=== PATIENT | female | born 1995 | race Two or more races ===

== ENCOUNTER → 2017-11-18 16:32 | Outpatient (CLI) | payer OTHER, SELFPAY ==
[2017-11-21 15:04] LABS: HPV Reflexed? NOT INDICATED
== END ==
PROVIDERS: Visit Provider Nurse Practitioner Women's Health
DX: Z12.4 Encounter for screening for malignant neoplasm of cervix (principal)
CPT/HCPCS: 88175; G0145

== ENCOUNTER → 2018-11-25 16:10 | Outpatient (CLI) | payer OTHER, SELFPAY ==
[2018-11-25 14:33] VITALS: BMI 19.7
[2018-11-25 19:01] LABS: Chlamydia Trachomatis by PCR Negative (Negative); Neisserai gonorrhoeae by PCR Negative (Negative); Probe Check PASS; Sample Adequacy Control PASS; Specimen Processing Control PASS
== END ==
PROVIDERS: Referring Provider Nurse Practitioner Women's Health; Visit Provider Nurse Practitioner Women's Health
DX: Z11.3 Encounter for screening for infections with a predominantly sexual mode of transmission (principal)
CPT/HCPCS: 87491; 87591

== ENCOUNTER 2020-12-24 00:27 | Outpatient (RCR) | payer OTHER, SELFPAY ==
[2019-03-30 12:48] VITALS: BMI 19.7
== END 2020-12-27 23:59 ==
LOC: EMPH 00:27
PROVIDERS: Visit Provider Family Medicine Geriatric Medicine
DX: Z03.818 Encounter for observation for suspected exposure to other biological agents ruled out (principal)
CPT/HCPCS: 87426